=== PATIENT | female | born 1990 | race Hispanic/Latino ===

== ENCOUNTER 2019-10-20 16:46 | Observation (INO) | payer OTHER ==
[~2019-10-20] VITALS: Ht 165.1 cm; Wt 132.1 kg
--- NOTE | 2019-10-20 16:46 | NUR ---
PT ARRIVES UPSET AND TEARFUL. WENT TO BED WITH NORMAL SENSATION AT 0030 AWOKE AT 0630 WITH RT FOOT TINGLING AND STARTED WITH RT HAND TINGLING AT 1230.NIH 1.SPEECH NORMAL, NO DRIFT. DENIES DIZZINESS OR HEADACHE
--- NOTE | 2019-10-20 16:49 | NUR ---
PT TO CT VIA STRETCHER
[2019-10-20 17:15] LABS: HEMATOCRIT 41.7 % (37.0-47.0); HEMOGLOBIN 14.1 g/dl (12.0-16.0); IMMATURE GRANULOCYTES 0.4 % (0.0-5.0); MEAN CELL VOLUME 88.3 fL CALC (80.0-100.0); MEAN CORPUSCULAR HGB 29.9 pG CALC (26.0-32.0); MEAN CORPUSCULAR HGB CONC 33.8 g/dL CAL (32.0-36.0); NEUT# 7.34 thou/uL (2.00-7.15); RED BLOOD COUNT 4.72 mill/uL (4.20-5.60)
--- NOTE | 2019-10-20 17:15 | NUR ---
TELE NEUROLOGY COMPLETED WITH PT . VSS. PT CALM AT THIS TIME. NO DEFICITS NOTED
[2019-10-20 17:16] LABS: GFR > 60 ML/MIN (>=60 (CALC)); GFR FOR AFR.AMER. > 60 ML/MIN (>=60 (CALC))
[2019-10-20 17:33] LABS: ALBUMIN 4.3 g/dL (3.2-5.0); BILIRUBIN, TOTAL 0.8 mg/dL (0.0-1.4); BUN 10 mg/dL (7-17); BUN/CREATININE RATIO 19 (12-20 (CALC)); CREATININE 0.5 mg/dL (0.5-1.0); GFR > 60 ML/MIN (>=60 (CALC)); GFR FOR AFR.AMER. > 60 ML/MIN (>=60 (CALC)); TOTAL PROTEIN 7.7 g/dL (6.3-8.2)
[2019-10-20 17:38] LABS: ALKALINE PHOSPHATASE 93 u/l (38-126); ANION GAP 9 (6-22 (CALC)); CARBON DIOXIDE 31 mmol/l (22-30); CHLORIDE 95 mmol/l (95-108); POTASSIUM 3.3 mmol/l (3.5-5.1); SGOT/AST 199 u/l (14-36); SODIUM 132 mmol/l (137-146)
--- NOTE | 2019-10-20 18:30 | NUR ---
PT CONTINUES TO HAVE SAME SYMPTOMS THAT ARE UNCHANGED. SHE DENIES ANY INCREASE OR CHANGE IN SYMPTOMS. VITAL SIGNS STABLIZED. CALL LIGHT WITHIN REACH
--- NOTE | 2019-10-20 19:41 | NUR ---
PATIENT ABLE TO AMBULATE INDEPENDENTLY TO THE BATHROOM TO PROVIDE URINE SAMPLE, STEADY GAIT, AWAKE AND ALERT, NO C/O PAIN OR DISCOMFORT, NO S/S OF DISTRESS, RESPIRATIONS EVEN AND UNLABORED.
[2019-10-20 19:58] LABS: URINE BILIRUBIN - DIPSTICK NEGATIVE (NEGATIVE); URINE BLOOD DIPSTICK NEGATIVE (NEGATIVE); URINE COLOR YELLOW; URINE GLUCOSE - DIPSTICK >=1000 mg/dL (NEGATIVE); URINE KETONE NEGATIVE (NEGATIVE); URINE LEUK ESTERASE NEGATIVE (NEGATIVE); URINE NITRITE - DIPSTICK NEGATIVE (Negative); URINE PROTEIN - DIPSTICK NEGATIVE (NEG-TRACE); URINE UROBILINOGEN - DIPSTICK 0.2 E.U./dL (0.2)
--- NOTE | 2019-10-20 20:46 | NUR ---
ATTEMPTED TO CALL REPORT TO ICU, THEY STATE THAT NURSE IS BUSY ON PHONE PERTAINING A PT AND WILL CALL BACK
--- NOTE | 2019-10-20 20:55 | NUR ---
GAVE REPORT TO LOC
--- NOTE | 2019-10-20 21:00 | NUR ---
PT TRANSPORTED TO ICU STABLE AND IN NO DISTRESS. CARE ASSUMED TO LOC. Admission Note Report Given to: Transported by: Wheelchair X Stretcher Transported with: X Nurse Transporter X Patent IV O2 X Jig Operator Location: X ICU MS2
--- NOTE | 2019-10-20 21:20 | NUR ---
RECEIVED FROM ER VIA STRETCHER. AMBULATES FROM STRETCHER TO BED WITH STABLE STANCE AND STEADY GAIT. PLACED ON BRUSH CLEANER SHOWING SR. ORIENTED TO SURROUNDINGS. EXPLAINED USE OF CALL WEATHERS AND BED CONTROLS.
--- NOTE | 2019-10-20 21:40 | NUR ---
PATIENT IS ALERT AND ORIENTED X4. SPEECH IS CLEAR WITH APPROPRIATE RESPONSES TO QUESTIONS. FACE SYMMETRICAL. FOLLOWS COMMANDS. 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 PUSH/PULLS- PUSH EQUAL-SLIGHTLY WEAK PLANTER FLEXION ON RIGHT FOOT. NO DRIFTS NOTED. RESP NON-LABORED. LUNGS CLEAR. PEDAL EDEMA PRESENT BILATERALLY. SALINE LOCK IN RAC, SITE HEALTHY. DISCUSSED PLAN OF CARE. DENIES NEEDS AT THIS TIME. CALL WEATHERS IN REACH.
[2019-10-20 21:45] VITALS: BP 161/96
[2019-10-20 22:15] VITALS: BP 181/103
[2019-10-21] VITALS (11 sets, daily range): BP systolic 145–202; BP diastolic 79–108
--- NOTE | 2019-10-21 00:05 | NUR ---
NO NEURO CHANGES TO REPORT. PATIENT RESTING QUIETLY. VSS. SR ON MONITOR.
--- NOTE | 2019-10-21 02:00 | NUR ---
VSS. NO CHANGES TO REPORT. SR ON MONITOR.
--- NOTE | 2019-10-21 04:00 | NUR ---
NEUROS INTACT. SR ON MONITOR.
--- NOTE | 2019-10-21 06:00 | NUR ---
AWAKE ON ROUNDS. DENIES ANY PAIN OR DISCOMFORTS, SALINE LOCK INTACT IN RAC. SR ON MONITOR.
--- NOTE | 2019-10-21 06:45 | NUR ---
REPORT RECEIVED FROM ZAHIDA LUU. CARE ASSUMED
--- NOTE | 2019-10-21 07:00 | NUR ---
PT RESTING IN BED AWAKE. PT IS ALERT AND ORIENTED X3. SHIFT ASSESSMENT COMPLETED AT THIS TIME. IV PATENT X1. PLAN CARE OF CARE DISCUSSED WITH PATIENT. CALL LIGHT IN REACH. WILL CONTINUE TO MONITOR.
--- NOTE | 2019-10-21 07:45 | NUR ---
PT ASSISTED UP TO RECLINER AT BEDSIDE AND SET UP FOR AM MEAL. CALL LIGHT IN REACH. WILL CONTINUE TOMONITOR.
[2019-10-21 08:10] LABS: HEMOGLOBIN 14.4 g/dl (12.0-16.0); IMMATURE GRANULOCYTES 0.4 % (0.0-5.0); MEAN CORPUSCULAR HGB 29.4 pG CALC (26.0-32.0); MEAN CORPUSCULAR HGB CONC 32.7 g/dL CAL (32.0-36.0); NEUT# 4.71 thou/uL (2.00-7.15); RED BLOOD COUNT 4.89 mill/uL (4.20-5.60); RED CELL DISTRI WIDTH 12.1 % (11.5-15.5)
[2019-10-21 08:28] LABS: ALBUMIN 3.9 g/dL (3.2-5.0); ALKALINE PHOSPHATASE 89 u/l (38-126); ANION GAP 6 (6-22 (CALC)); BUN 10 mg/dL (7-17); BUN/CREATININE RATIO 21 (12-20 (CALC)); CALCULATED LDLCHOLESTEROL 43 mg/dL (62-129 (CALC)); CARBON DIOXIDE 31 mmol/l (22-30); CHLORIDE 99 mmol/l (95-108); CHOLESTEROL HDL RATIO 2.1 (<4.4 (CALC)); CREATININE 0.5 mg/dL (0.5-1.0); GFR > 60 ML/MIN (>=60 (CALC)); GFR FOR AFR.AMER. > 60 ML/MIN (>=60 (CALC)); HDL CHOLESTEROL 52 mg/dL (>=40); POTASSIUM 3.7 mmol/l (3.5-5.1); SGOT/AST 237 u/l (14-36); SODIUM 131 mmol/l (137-146); TOTAL CHOLESTEROL 111 mg/dl (0-199); TOTAL PROTEIN 7.1 g/dL (6.3-8.2); TOTAL TRIGLYCERIDES 76 mg/dl (30-149); VLDL CHOLESTROL 15 mg/dl (2-29 (CALC))
--- NOTE | 2019-10-21 09:40 | NUR ---
DR WILSON AT BEDSIDE AT THIS TIME
--- NOTE | 2019-10-21 10:41 | NUR ---
PT RESTING BACK IN BED AT THIS TIME. PT REQUESTING TO GO HOME THIS AFTERNOON IF BP BETTER. MD AWARE WILL RE EVAL LATER TODAY. CALL LIGHT IN REACH. WILL CONTINUE TO MONITOR
--- NOTE | 2019-10-21 12:00 | NUR ---
PT RESTING IN BED AWAKE. RESP ARE EVEN AND UNLABORED. NO DISTRESS NOTED. CALL LGITH IN REACH. WILL CONTINUE TO MONITOR.
--- NOTE | 2019-10-21 13:54 | NUR ---
RADIOLOGY AT BEDSIDE FOR ULTRASOUND.
--- NOTE | 2019-10-21 14:07 | NUR ---
PT MEDICATED PER JUN WITH LABETALOL FOR CONTINUED ELEVATED BP. INSTRUCTED PT TO CALL AND NOT GET OUT OF BED DUE TO MEDICATIONS COULD DROP BP. PT VERBALIZED UNDERSTANDING.
--- NOTE | 2019-10-21 16:00 | NUR ---
PT ASSISTED UP TO BSC TO VOID. PT TOLERATED WELL. BP DOWN TO 148/91. PT REPORTS FEELING GROGGY. EXPLAINED THAT BP WAS LOWER NOW. PT PROVIDED WITH SANDWICH AND PUDDING FOR LUNCH DUE TO BE NPO FOR ULTRASOUND. CALL LIGHT IN REACH. WILL CONTINUE TO MONITOR.
--- NOTE | 2019-10-21 18:13 | NUR ---
PT SITTING UP ON SIDE OF BED EATING DINNER VISITING WITH SIGNIFICANT OTHER. CALL LIGHT IN [facility]. WILL CONTINUE TO MONITOR.
--- NOTE | 2019-10-21 19:45 | NUR ---
RESTING IN BED ON ROUNDS. AWAKE, ALERT AND ORIENTED X4. SPEECH CLEAR AND APPROPRIATE IN RESPONSES TO QUESTIONS. FACE SYMMETRICAL. [place]. DENIES HEADACE OR VISUAL DISTURBANCES. MOVES ALL EXTREMITIES EQUAL AND WELL . NO ARM DRIFT NOTED. STATES VERY SLT TINGLING OF RIGHT FOOT. RESP NON-LABORED. LUNGS CLEAR. BILATERAL PEDAL EDEMA PRESENT. PERIPHERAL PULSES INTACT. RAC SALINE LOCK IN PLACE, DSG CDI, SITE BENIGN. SAP PP CONSULTANT SHOWS SR. SHIFT ASSESSMENT COMPLETED. DISCUSSED PLAN OF CARE, DIAGNOSIS OF HTN AND DM AND PROVIDED WITH PRINTED EDUCATION MATERIAL ON NEW MEDICATIONS, DM, AND HTN. ENCOURAGED TO ASK QUESTIONS AND VOICE ANY FEARS OR CONCERNS.
--- NOTE | 2019-10-21 21:30 | NUR ---
ACCU CHECK 202. DISCUSSED WITH PATIENT IMPORTANCE OF MONITORING BS AND SS INSULIN COVERAGE.
--- NOTE | 2019-10-21 22:05 | NUR ---
RESTING IN BED WITH NO COMPLAINTS VOICED. GIVEN DIET SODA AND DENILSON CRACKERS FOR HS SNACK.
--- NOTE | 2019-10-21 22:45 | NUR ---
DR WILSON PHONED IN FOR CONDITION UPDATE ON PATIENT, ADVISED OF ELEAVTED BP. NEW ORDERS RECEIVED.
--- NOTE | 2019-10-21 23:30 | NUR ---
PATIENT SLEEPING, AWAKENS EASILY TO NAME. EXPLAINED TO PATIENT THAT AMLODIPINE HAS BEEN INCREASED TO TWICE A DAY-SECOND DOSE FOR TODAY GIVEN AT THIS TIME.
[2019-10-22] VITALS: BP 118/58
--- NOTE | 2019-10-22 00:15 | NUR ---
ASLEEP. RESP NON-LABORED. SR ON MONITOR.
[2019-10-22 02:00] VITALS: BP 128/65
--- NOTE | 2019-10-22 02:00 | NUR ---
BLOOD PRESSURE RESPONDED WELL TO AMLODIPINE GIVEN EARLIER.
[2019-10-22 04:00] VITALS: BP 124/61
--- NOTE | 2019-10-22 04:00 | NUR ---
SLEEPING SOUNDLY. VSS. BP STABLE WNL. SR ON MONITOR.
[2019-10-22 06:00] VITALS: BP 116/74
--- NOTE | 2019-10-22 06:00 | NUR ---
NO CHANGES TO REPORT. VSS.
--- NOTE | 2019-10-22 06:45 | NUR ---
REPORT RECEIVED FROM ZAHIDA LUU CARE ASSUMED.
--- NOTE | 2019-10-22 07:40 | NUR ---
PT RESTING IN BED AWAKE. PT IS ALERT AND ORIENTED X3. SHIFT ASSESSMENT COMPLETED AT THIS TIME. IV PATENT X1. CALL LIGHT IN REACH. WILL CONTINUE TO MONITOR.
[2019-10-22 08:00] VITALS: BP 167/93
[2019-10-22] MEDS ORDERED: METFORMIN500 M2 PO (08:40)
[2019-10-22] MEDS ORDERED: AMLODIPINE BESYL5 MG PO (08:40)
[2019-10-22] MEDS ORDERED: LABETALOL HYDR100 MG PO (08:40)
--- NOTE | 2019-10-22 09:00 | NUR ---
DR WILSON AT BEDSIDE AT THIS TIME
[2019-10-22 09:31] VITALS: BP 167/93
--- NOTE | 2019-10-22 10:00 | NUR ---
PT DRESSED AND SITTING UP IN CHAIR.
--- NOTE | 2019-10-22 10:30 | NUR ---
IV site discontinued, cath intact. No edema , no redness, voices no discomfort.
--- NOTE | 2019-10-22 11:20 | NUR ---
DISCHARGE INSTRUCTIONS REVIEWED WITH PATIENT. EXTENSIVE EDUCATION GIVEN. PT VERBALIZED UNDERSTANDING.
--- NOTE | 2019-10-22 11:25 | NUR ---
Discharge instructions given. Patient verbalizes understanding of same. Discharged in stable condition via Ambulatory to Home with family. All belongings sent with pt.
== END 2019-10-22 11:25 | disposition home or self-care (01) | DRG 305 ==
LOC: ED 16:46 → ED-I 18:42 → ED 18:55 → ICU 18:56 → ED-I 18:56 → ICU 19:21
PROVIDERS: Family Medicine; Internal Medicine; ADMIT Internal Medicine; ATTEND Internal Medicine
DX: I16.0 Hypertensive urgency (principal); I10 Essential (primary) hypertension; E11.9 Type 2 diabetes mellitus without complications; R74.8 Abnormal levels of other serum enzymes; Z20.828 Contact with and (suspected) exposure to other viral communicable diseases
CPT/HCPCS: Q9967